=== PATIENT | male | born 1950 | race Asian ===

== ENCOUNTER 2020-06-29 10:29 | Emergency (ER) | payer MEDICARE, SELFPAY ==
[2020-06-29] VITALS (19 sets, daily range): BP systolic 107–146; BP diastolic 58–76; PULSE 62–83; RESP 13–20; TEMP 36.6; O2SAT 95–100; BMI 22.1
--- NOTE | 2020-06-29 10:54 | ED_ITS ---
HPI - Abdominal Pain General Chief Complaint: Abdominal Pain Stated Complaint: jaundice Time Seen by Provider: 06/29/20 10:49 Source: patient Mode of arrival: Ambulatory Limitations: no limitations History of Present Illness HPI narrative: Patient is a 69-year-old male with history of colon cancer treated with chemo radiation and surgery 2 years ago in [facility] presenting with 3 week increasing jaundice. He states that he is having early CAD and I feeling nauseous when he eats but is still able to do so. He denies any nausea. He has noted some dark urine. Clearly jaundiced. Denies any alcohol use. He has no abdominal pain. MD complaint: other (Jaundice) Onset (ago): week(s) (2-3) Related Data Allergies Allergy/AdvReac Type Severity Reaction Status Date / Time No Known Drug Allergies Allergy Verified 06/29/20 10:57 Review of Systems Review of Systems Narrative: GENERAL: Denies chills, fatigue, malaise, fever, sweats, travel HEENT: Denies sinus pain, ear pain, sore throat, difficulty swallowing, neck pain RESPIRATORY: Denies dyspnea, cough, wheezing, hemoptysis, sputum. CARDIOVASCULAR: Denies chest pain, palpitations, orthopnea, edema GASTROINTESTINAL: See HPI Denies nausea, vomiting, abdominal pain, diarrhea, constipation, melena. : Denies dysuria, frequency, incontinence, hematuria, urinary retention, flank pain. MUSCULOSKELETAL: Denies weakness, joint pain, or bony pain SKIN: No rash, no erythema, no pruritus NEUROLOGIC: Denies weakness, dizziness, headache, numbness, change in speech, confusion PSYCHIATRIC: No concerning psychosocial issues. 12 point review of systems is negative except for those stated above and HPI Patient History Medical History Colon cancer Social History Smoking Status: Never smoker Exam Initial Vital Signs Initial Vital Signs: Vital Signs Pulse Rate 81 06/29/20 10:44 Pulse Oximetry 99 06/29/20 10:44 GENERAL: Pleasant alert 69-year-old male clearly jaundiced and in no acute distress. HEENT: Head atraumatic,EOMI, pupils reactive, face symmetric, moist mucous membranes CARDIOVASCULAR: Regular rate and rhythm without murmurs, rubs or gallops. RESPIRATORY: Breath sounds equal bilaterally, no wheezes rales or rhonchi. ABDOMEN: Soft, nontender. Normoactive bowel sounds all 4 quadrants. No guarding or rebound. EXTREMITIES: Normal range of motion, no clubbing or edema. Neurovascularly intact NEUROLOGICAL: Alert and oriented x4.Normal gait and speech. Cranial nerves II through XII grossly intact. SKIN: Warm, dry, no laceration, no petechiae, no rashes or lesions. Course Orders Ordered: ED Orders 06/29/20 10:50 Complete Blood Count AUTO DIFF Stat Comprehensive Metabolic Panel Stat Lipase Stat Partial Thromboplastin Time Stat Prothrombin Time INR Stat 06/29/20 11:14 COVID19 Stat 06/29/20 11:40 CT abdomen pelvis w con Stat 06/29/20 11:45 Urine Culture Stat Urine Microscopic Stat 06/29/20 12:36 Consult to MANAGER NEW PRODUCT - Dot Compliance Manager Stat 06/29/20 12:49 CT chest w con Stat Vital Signs Vital signs: Vital Signs - 8 hr 06/29/20 11:43 06/29/20 12:00 06/29/20 12:30 Pulse Rate 73 65 66 Respiratory Rate 20 16 13 Blood Pressure Pulse Oximetry 99 99 99 06/29/20 13:00 06/29/20 13:30 06/29/20 14:00 Pulse Rate 66 62 66 Respiratory Rate 14 14 14 Blood Pressure 143/60 H 135/59 L 132/65 Pulse Oximetry 100 99 98 06/29/20 14:30 06/29/20 15:00 06/29/20 15:31 Pulse Rate 73 65 83 Respiratory Rate 19 15 19 Blood Pressure Pulse Oximetry 98 97 98 06/29/20 16:00 06/29/20 16:13 06/29/20 16:30 Pulse Rate 67 75 67 Respiratory Rate 14 16 16 Blood Pressure 124/58 L 111/76 Pulse Oximetry 98 95 97 06/29/20 17:00 06/29/20 17:30 06/29/20 18:00 Pulse Rate 65 73 69 Respiratory Rate 15 16 16 Blood Pressure 146/69 H 129/72 111/73 Pulse Oximetry 97 99 96 06/29/20 18:31 Pulse Rate 80 Respiratory Rate 17 Blood Pressure 129/65 Pulse Oximetry MDM - Abdominal Pain Lab Data Attestation: I reviewed the patient's lab results. Result diagrams: 06/29/20 10:50 06/29/20 10:50 Labs: Lab Results 06/29/20 06/29/20 06/29/20 Range/Units 10:50 10:50 10:50 WBC 7.2 (4.5-11.0) X10^3/uL RBC 4.10 L (4.5-5.9) X10^6/uL Hgb 13.3 L (13.5-17.5) g/dL Hct 40.2 L (41-53) % MCV 97.9 (80-100) fL MCH 32.5 (26-34) PG MCHC 33.1 (30-36) % RDW 14.8 (11.6-14.8) % Plt Count 323 (150-400) X10^3/uL Neut % (Auto) 74.2 (50-75) % Lymph % (Auto) 13.9 L (25-40) % [place] % (Auto) 10.4 (3-14) % Eos % (Auto) 1.2 L (2-4) % Baso % (Auto) 0.3 (0-2) % Neut # (Auto) 5300 (6554-7574) /uL Lymph # (Auto) 1000 L (1233-1486) /uL [place] # (Auto) 800 (0-900) /uL Eos # (Auto) 100 (0-450) /uL Baso # (Auto) 0 (0-100) /uL PT 12.5 (10.1-12.7) SECONDS INR 1.1 (0.9-1.3) APTT 32 (26.4-36.2) SECONDS Sodium 137 (137-145) mmol/L Potassium 3.9 (3.4-5.1) mmol/L Chloride 102 (98-107) mmol/L Carbon Dioxide 30 (22-32) mmol/L BUN 16 (9-20) mg/dL Creatinine 0.64 L (0.66-1.25) mg/dL Estimated GFR > 60.0 (>60) mL/min BUN/Creatinine Ratio 25.0 H (6-22) Glucose 97 (80-110) mg/dL Calcium 9.1 (8.4-10.2) mg/dL Total Bilirubin 11.1 H (0.2-1.3) mg/dL AST 163 H (17-59) IU/L ALT 293 H (<50) IU/L Alkaline Phosphatase 413 H (38-126) U/L Total Protein 8.1 (6.3-8.2) g/dL Albumin 4.1 (3.5-5.0) g/dL Globulin 4.0 (1.7-4.1) g/dL Albumin/Globulin Ratio 1.0 (1.0-2.8) Lipase 127 (23-300) U/L Urine RBC (0-5/HPF) Urine WBC (0-5/HPF) Urine Bacteria (None) Urine Mucus (Negative) Ur Culture Indicated? SARS-CoV-2 (PCR) (Negative) 06/29/20 06/29/20 Range/Units 11:14 11:45 WBC (4.5-11.0) X10^3/uL RBC (4.5-5.9) X10^6/uL Hgb (13.5-17.5) g/dL Hct (41-53) % MCV (80-100) fL MCH (26-34) PG MCHC (30-36) % RDW (11.6-14.8) % Plt Count (150-400) X10^3/uL Neut % (Auto) (50-75) % Lymph % (Auto) (25-40) % [place] % (Auto) (3-14) % Eos % (Auto) (2-4) % Baso % (Auto) (0-2) % Neut # (Auto) (5977-4401) /uL Lymph # (Auto) (0656-3224) /uL [place] # (Auto) (0-900) /uL Eos # (Auto) (0-450) /uL Baso # (Auto) (0-100) /uL PT (10.1-12.7) SECONDS INR (0.9-1.3) APTT (26.4-36.2) SECONDS Sodium (137-145) mmol/L Potassium (3.4-5.1) mmol/L Chloride (98-107) mmol/L Carbon Dioxide (22-32) mmol/L BUN (9-20) mg/dL Creatinine (0.66-1.25) mg/dL Estimated GFR (>60) mL/min BUN/Creatinine Ratio (6-22) Glucose (80-110) mg/dL Calcium (8.4-10.2) mg/dL Total Bilirubin (0.2-1.3) mg/dL AST (17-59) IU/L ALT (<50) IU/L Alkaline Phosphatase (38-126) U/L Total Protein (6.3-8.2) g/dL Albumin (3.5-5.0) g/dL Globulin (1.7-4.1) g/dL Albumin/Globulin Ratio (1.0-2.8) Lipase (23-300) U/L Urine RBC None seen (0-5/HPF) Urine WBC 1-5/hpf (0-5/HPF) Urine Bacteria None seen (None) Urine Mucus 2+ H (Negative) Ur Culture Indicated? Specimen cultured SARS-CoV-2 (PCR) Negative (Negative) Point of care testing: Urine Dip Bedside Urine Glucose Negative Bedside Urine Bilirubin ++ 2 Bedside Urine Ketone - Negative Urine Specific [place] 1.015 Bedside Urine Occult Blood +/- Bedside Urine pH 6 Bedside Urine Protein +/- 15 Bedside Urine Urobilinogen - Negative Bedside Urine Nitrite - Negative Bedside Urine Leukocytes + [address] scan - chest: Radiologist's Impression: PROCEDURE: CT CHEST W CON INDICATIONS: History of colon cancer. TECHNIQUE: After the administration of intravenous contrast, 5 mm thick sections acquired from the pulmonary apices to the posterior costophrenic angles. 1 mm axial lung, 5 mm thick coronal and sagittal reformats and 7 mm axial MIP were acquired. For radiation dose reduction, the following was used: automated exposure control, adjustment of mA and/or kV according to patient size. COMPARISON: [facility], CT, CT ABDOMEN PELVIS W CON, 06/29/2020, 11:21. FINDINGS: Image quality: Exce/llent. Lungs and pleura: There is a left upper lobe cavitary nodule measuring up to 1.2 x 1.2 x 1.4 cm with eccentric internal soft tissue thickening. In the right middle lobe, there is a cavitary nodule measuring up to 1.0 x 0.8 x 1.0 cm. There is mild dependent atelectasis bilaterally. No pleural effusions or pneumothorax. Central and peripheral airways are patent and normal in caliber. Mediastinum: Heart size is normal. No pericardial effusion. There is mild coronary arterial vascular calcification. No mediastinal or hilar adenopathy by size criteria. Thoracic aorta and central pulmonary arteries are normal in size. Esophagus is normal in caliber. No hiatal hernia. Bones and chest wall: No suspicious bony lesions. No vertebral body compression fractures. No axillary or supraclavicular adenopathy by size criteria. Thyroid gland demonstrates a small hypoattenuating nodule within the right lobe measuring up to 0.7 cm.. Abdomen: Visualized upper abdomen redemonstrates a large peripherally enhancing mass within the partially visualized liver as seen on the concurrent study of the abdomen. There is marked associated biliary ductal dilatation again noted. IMPRESSION: 1. Cavitary nodules within the left upper and right middle lobes are suspicious for metastatic disease given clinical history. The differential includes atypical infection such as from fungal or mycobacterial etiologies. 2. Partially visualized hepatic mass as seen on the recent abdominal CT compatible with metastatic disease. Dictated by: Fabian Schroeder M.D. on 06/29/2020 at 13:01 CT scan - abdomen/pelvis: Radiologist's Impression: PROCEDURE: CT ABDOMEN PELVIS W CON INDICATIONS: jaundice with hx of colon cancer TECHNIQUE: After the administration of intravenous contrast, 5 mm thick sections acquired from the diaphragm to the symphysis. 5 mm coronal and sagittal reformats were acquired. For radiation dose reduction, the following was used: automated exposure control, adjustment of mA and/or kV according to patient size. COMPARISON: None available. FINDINGS: Image quality: Excellent. ABDOMEN: Lung bases: There is mild dependent atelectasis. Heart size is normal. Solid organs: There is a large lobulated peripherally enhancing centrally necrotic mass within the liver centered primarily within segments 4A and 4B. This measures up to approximately 10.3 x 7.8 x 10.6 cm. There is adjacent peripheral enhancement within the hepatic parenchyma. Marked intrahepatic biliary ductal dilatation is demonstrated within the right and left lobes. No extrahepatic dilatation. Pancreas enhances normally. Spleen is normal in size and enhancement. No adrenal nodules. Kidneys demonstrate normal size and enhancement, without hydronephrosis. Peritoneum and bowel: Bowel loops demonstrate normal wall thickness and caliber. Surgical sutures are demonstrated within the rectosigmoid colon. No discrete pelvic mass identified. No free fluid or air. Nodes and vessels: There are mildly enlarged retroperitoneal aortocaval lymph nodes including a few hyperdense calcified nodes. These measure up to approximately 1.1 cm in short axis. Aorta and inferior vena cava are normal in size. Miscellaneous: No ventral hernias. PELVIS: Genitourinary: Bladder wall thickness is normal. The Miscellaneous: No inguinal hernias or adenopathy. Bones: No definite suspicious bony lesions. Visualized osseous structures appear osteopenic. No vertebral body compression fractures. IMPRESSION: 1. Large lobulated peripherally enhancing hepatic mass consistent with metastatic disease. 2. Associated marked intrahepatic biliary ductal dilatation demonstrated due to mass effect. 3. Mildly enlarged aortocaval retroperitoneal lymph nodes likely reflecting metastatic disease. These include a few calcified nodes which may be due to response to therapy. Dictated by: Fabian Schroeder M.D. on 06/29/2020 at 12:03 MDM Narrative Medical decision making narrative: Patient has a large liver mass he likely metastatic colon cancer. [address] Avila was happy to see patient in the clinic however recommends he have liver biopsy and liver decompression 1st. Patient unfortunately does not have a primary care provider to help coordinate ERCP and stent. [address] Chappell, hepatology at [facility] updated on patient's symptoms test results agrees with transfer but recommends talking to GI and hospitalist [id number] , GI updated on patient's symptoms test results agrees with transfer 1705 Dr. Rodriguez hospitalist team patient's symptoms test results accepts patient for transfer Patient is hemodynamically stable he has painless jaundice has not required any pain medication in the ED. Discharge Plan Departure Patient Disposition: [facility] Clinical Impression: Colon cancer, Liver mass
[2020-06-29 11:05] LABS: Add Manual Diff / Slide Review NO; Basophils Absolute Auto 0 /uL (0-100); Basophils Percent Auto 0.3 % (0-2); Eosinophils Absolute Auto 100 /uL (0-450); Eosinophils Percent Auto 1.2 % (2-4); Hematocrit 40.2 % (41-53); Hemoglobin 13.3 g/dL (13.5-17.5); Lymphocytes Absolute Auto 1000 /uL (1100-4500); Lymphocytes Percent Auto 13.9 % (25-40); Mean Corpuscular HGB Conc 33.1 % (30-36); Mean Corpuscular Hemoglobin 32.5 PG (26-34); Mean Corpuscular Volume 97.9 fL (80-100); Monocytes Absolute Auto 800 /uL (0-900); Monocytes Percent Auto 10.4 % (3-14); Neutrophils Absolute Auto 5300 /uL (1500-7000); Neutrophils Percent Auto 74.2 % (50-75); Platelet Count 323 X10^3/uL (150-400); Red Cell Distribution Width 14.8 % (11.6-14.8); White Blood Cell Count 7.2 X10^3/uL (4.5-11.0)
[2020-06-29 11:07] LABS: INR 1.1 (0.9-1.3); Prothrombin Time 12.5 SECONDS (10.1-12.7)
[2020-06-29 11:09] LABS: PTT Partial Thromboplastin Tim 32 SECONDS (26.4-36.2)
[2020-06-29 11:11] LABS: Alanine Aminotransferase 293 IU/L (<50); Albumin 4.1 g/dL (3.5-5.0); Alkaline Phosphatase 413 U/L (38-126); Aspartate Aminotransferase 163 IU/L (17-59); Bilirubin Total 11.1 mg/dL (0.2-1.3); Blood Urea Nitrogen 16 mg/dL (9-20); Calcium 9.1 mg/dL (8.4-10.2); Carbon Dioxide 30 mmol/L (22-32); Chloride 102 mmol/L (98-107); Estimated Glomerular Filt Rate > 60.0 mL/min (>60); Glucose 97 mg/dL (80-110); HEMOLYSIS < 15 (0-50); Lipase 127 U/L (23-300); Potassium 3.9 mmol/L (3.4-5.1); Sodium 137 mmol/L (137-145); Total Protein 8.1 g/dL (6.3-8.2)
--- NOTE | 2020-06-29 11:40 | DI.CT.S_ITS ---
PROCEDURE: CT ABDOMEN PELVIS W CON INDICATIONS: jaundice with hx of colon cancer TECHNIQUE: After the administration of intravenous contrast, 5 mm thick sections acquired from the diaphragm to the symphysis. 5 mm coronal and sagittal reformats were acquired. For radiation dose reduction, the following was used: automated exposure control, adjustment of mA and/or kV according to patient size. COMPARISON: None available. FINDINGS: Image quality: Excellent. ABDOMEN: Lung bases: There is mild dependent atelectasis. Heart size is normal. Solid organs: There is a large lobulated peripherally enhancing centrally necrotic mass within the liver centered primarily within segments 4A and 4B. This measures up to approximately 10.3 x 7.8 x 10.6 cm. There is adjacent peripheral enhancement within the hepatic parenchyma. Marked intrahepatic biliary ductal dilatation is demonstrated within the right and left lobes. No extrahepatic dilatation. Pancreas enhances normally. Spleen is normal in size and enhancement. No adrenal nodules. Kidneys demonstrate normal size and enhancement, without hydronephrosis. Peritoneum and bowel: Bowel loops demonstrate normal wall thickness and caliber. Surgical sutures are demonstrated within the rectosigmoid colon. No discrete pelvic mass identified. No free fluid or air. Nodes and vessels: There are mildly enlarged retroperitoneal aortocaval lymph nodes including a few hyperdense calcified nodes. These measure up to approximately 1.1 cm in short axis. Aorta and inferior vena cava are normal in size. Miscellaneous: No ventral hernias. PELVIS: Genitourinary: Bladder wall thickness is normal. The Miscellaneous: No inguinal hernias or adenopathy. Bones: No definite suspicious bony lesions. Visualized osseous structures appear osteopenic. No vertebral body compression fractures. IMPRESSION: 1. Large lobulated peripherally enhancing hepatic mass consistent with metastatic disease. 2. Associated marked intrahepatic biliary ductal dilatation demonstrated due to mass effect. 3. Mildly enlarged aortocaval retroperitoneal lymph nodes likely reflecting metastatic disease. These include a few calcified nodes which may be due to response to therapy. Dictated by: Fabian Schroeder M.D. on 06/29/2020 at 12:03 Approved by: Fabian Schroeder M.D. on 06/29/2020 at 12:09
[2020-06-29 11:57] LABS: Bacteria Urine None Seen; RBC Urine None Seen (0-5/HPF)
[2020-06-29 12:03] LABS: Culture Indicated Urine Specimen Cultured; Mucus Urine 2+ (Negative); WBC Urine 1-5/HPF (0-5/HPF)
[2020-06-29 12:11] LABS: COVID19 -Nasal RAPID Negative (Negative)
--- NOTE | 2020-06-29 12:49 | DI.CT.S_ITS ---
PROCEDURE: CT CHEST W CON INDICATIONS: History of colon cancer. TECHNIQUE: After the administration of intravenous contrast, 5 mm thick sections acquired from the pulmonary apices to the posterior costophrenic angles. 1 mm axial lung, 5 mm thick coronal and sagittal reformats and 7 mm axial MIP were acquired. For radiation dose reduction, the following was used: automated exposure control, adjustment of mA and/or kV according to patient size. COMPARISON: [facility], CT, CT ABDOMEN PELVIS W CON, 06/29/2020, 11:21. FINDINGS: Image quality: Exce/llent. Lungs and pleura: There is a left upper lobe cavitary nodule measuring up to 1.2 x 1.2 x 1.4 cm with eccentric internal soft tissue thickening. In the right middle lobe, there is a cavitary nodule measuring up to 1.0 x 0.8 x 1.0 cm. There is mild dependent atelectasis bilaterally. No pleural effusions or pneumothorax. Central and peripheral airways are patent and normal in caliber. Mediastinum: Heart size is normal. No pericardial effusion. There is mild coronary arterial vascular calcification. No mediastinal or hilar adenopathy by size criteria. Thoracic aorta and central pulmonary arteries are normal in size. Esophagus is normal in caliber. No hiatal hernia. Bones and chest wall: No suspicious bony lesions. No vertebral body compression fractures. No axillary or supraclavicular adenopathy by size criteria. Thyroid gland demonstrates a small hypoattenuating nodule within the right lobe measuring up to 0.7 cm.. Abdomen: Visualized upper abdomen redemonstrates a large peripherally enhancing mass within the partially visualized liver as seen on the concurrent study of the abdomen. There is marked associated biliary ductal dilatation again noted. IMPRESSION: 1. Cavitary nodules within the left upper and right middle lobes are suspicious for metastatic disease given clinical history. The differential includes atypical infection such as from fungal or mycobacterial etiologies. 2. Partially visualized hepatic mass as seen on the recent abdominal CT compatible with metastatic disease. Dictated by: Fabian Schroeder M.D. on 06/29/2020 at 13:01 Approved by: Fabian Schroeder M.D. on 06/29/2020 at 13:29
--- NOTE | 2020-06-29 13:34 | CM.SWNOTE ---
MEDICAL LAB TECHNICIAN note MEDICAL LAB TECHNICIAN consult requested for patient. Patient is a 69 y/o male who presents to this ED with initial concern for jaundice. During course of assessment, a metastatic mass was found in patient's abdomen. Per verbal report from Dr. Clements, patient was working with an oncologist in [place] for previous dx of colon cancer, which was thought to be in remission. Patient's insurance is listed as Medicare primary with [employer] secondary, and patient reports his PCP is Dr. Gu at the primary care clinic on [facility]. MEDICAL LAB TECHNICIAN enters room and introduces self, role to patient and patient's . Patient is A+O x3, and speaks softly during assessment. Patient's speaks during most of assessment. Patient and provide history of colon cancer and state they believed it had been in remission for some time. Patient and report that their previous oncologist informed them in December of this year that they re-establishing with an oncologist was not urgent. Patient and explain they are shocked by current discovery as they thought they were out of the nance. Family asks several questions regarding course of care. MEDICAL LAB TECHNICIAN explains that Dr. Clements is currently working with multiple entities to establish next steps for treatment. Patient and requested to know what stage of progression the cancer was at and if it would be biopsied at . MEDICAL LAB TECHNICIAN informed patient and that he would inform Dr. Clements of these questions. Patient and deny other questions for MEDICAL LAB TECHNICIAN at this time. MEDICAL LAB TECHNICIAN exits room and informs Dr. Clements of questions and concerns. MEDICAL LAB TECHNICIAN will continue to follow patient while in ED and offer additional support as appropriate. EMMA Garcia
--- NOTE | 2020-06-29 18:30 | PC.NURSE ---
Report given to Neftaly ADAMSON at [facility] at this time.
== END 2020-06-29 19:00 | disposition short-term general hospital (02) ==
PROVIDERS: Emergency Provider Emergency Medicine
DX: R16.0 Hepatomegaly, not elsewhere classified (principal); C18.9 Malignant neoplasm of colon, unspecified; R11.0 Nausea; Z20.822 Contact with and (suspected) exposure to COVID-19
CPT/HCPCS: 36415; 71260; 74177; 80053; 81003; 81015; 83690; 85025; 85610; 85730; 87086; 87635; 99282; 99284; C9803; Q9967

== ENCOUNTER → 2020-09-22 08:42 | Outpatient (CLI) | payer MEDICARE, OTHER, SELFPAY ==
[2020-09-22 23:22] LABS: Add Manual Diff / Slide Review NO; Alanine Aminotransferase 22 IU/L (<50); Albumin 2.7 g/dL (3.5-5.0); Albumin Globulin Ratio 0.7 (1.0-2.8); Alkaline Phosphatase 354 U/L (38-126); Aspartate Aminotransferase 104 IU/L (17-59); BUN Creatinine Ratio 26.5 (6-22); Basophils Absolute Auto 0 /uL (0-100); Basophils Percent Auto 0.3 % (0-2); Bilirubin Total 0.9 mg/dL (0.2-1.3); Blood Urea Nitrogen 13 mg/dL (9-20); Calcium 8.5 mg/dL (8.4-10.2); Carbon Dioxide 28 mmol/L (22-32); Chloride 100 mmol/L (98-107); Eosinophils Absolute Auto 0 /uL (0-450); Estimated Glomerular Filt Rate > 60.0 mL/min (>60); Globulin 3.7 g/dL (1.7-4.1); Glucose 98 mg/dL (80-110); HEMOLYSIS 16 (0-50); Hematocrit 25.8 % (41-53); Hemoglobin 8.3 g/dL (13.5-17.5); Lymphocytes Absolute Auto 300 /uL (1100-4500); Lymphocytes Percent Auto 4.4 % (25-40); Mean Corpuscular HGB Conc 32.1 % (30-36); Mean Corpuscular Hemoglobin 30.3 PG (26-34); Mean Corpuscular Volume 94.2 fL (80-100); Monocytes Absolute Auto 900 /uL (0-900); Monocytes Percent Auto 12.6 % (3-14); Neutrophils Absolute Auto 6200 /uL (1500-7000); Neutrophils Percent Auto 82.7 % (50-75); Platelet Count 406 X10^3/uL (150-400); Potassium 4.3 mmol/L (3.4-5.1); Red Blood Cell Count 2.74 X10^6/uL (4.5-5.9); Red Cell Distribution Width 16.6 % (11.6-14.8); Sodium 132 mmol/L (137-145); Total Protein 6.4 g/dL (6.3-8.2); White Blood Cell Count 7.5 X10^3/uL (4.5-11.0)
== END ==
PROVIDERS: PCP Family Medicine; Visit Provider Emergency Medicine
DX: C18.9 Malignant neoplasm of colon, unspecified (principal); Z15.89 Genetic susceptibility to other disease
CPT/HCPCS: 80053; 85025